=== PATIENT | male | born 1935 | race Caucasian/White ===

== ENCOUNTER 2018-04-14 11:31 | Emergency (ER) | payer MEDICARE, BC ==
[2018-04-14] MEDS ORDERED: Diph,Pert(Acell),Tet Vac 0.5 ML SYR IM ONE (12:14)
--- NOTE | 2018-04-14 12:16 | Emergency Department Record ---
History of Present Illness - General Chief Complaint: Laceration(s) Stated Complaint: RIGHT INDEX FINGER LAC Time Seen by Provider: 04/14/18 12:05 Source: Patient, RN notes reviewed Mode of Arrival: Ambulatory - History of Present Illness Initial Commments: got his right index finger caught under a lawnmower and also some right shoulder pain with FROM of shoulder. Onset/Timin -: Hour(s) Place: Home Context: Sharp object use Associated Symptoms: None Treatments Prior to Arrival: Bandage - Related Data Hx Tetanus Toxoid Vaccination: Yes Home Medications Medication Instructions Recorded Confirmed Last Taken Cetirizine HCl [All Day Allergy] 10 mg PO DAILY 04/14/18 04/14/18 Unknown Hydrochlorothiazide [Hctz] 12.5 mg PO DAILY 04/14/18 04/14/18 Unknown Lysine 500 mg PO DAILY 04/14/18 04/14/18 Unknown Meloxicam 7.5 mg PO DAILY 04/14/18 04/14/18 Unknown Methimazole [Tapazole] 5 mg PO DAILY 04/14/18 04/14/18 Unknown Simvastatin [Zocor] 10 mg PO DAILY 04/14/18 04/14/18 Unknown Terazosin HCl 10 mg PO DAILY 04/14/18 04/14/18 Unknown Tramadol HCl [Ultram] 50 mg PO Q8H 04/14/18 04/14/18 Unknown Previous Rx's Medication Instructions Recorded Cephalexin [Keflex] 500 mg PO QID #40 cap 04/14/18 Hydrocodone/Acetaminophen [[place] 1 each PO Q6HR #10 tablet 04/14/18 5-325 Tablet] Allergies Allergy/AdvReac Type Severity Reaction Status Date / Time No Known Drug Allergies Allergy Verified 04/14/18 11:41 Travel Screening - Travel/Exposure Within Last 30 Days Have you traveled within the last 30 days?: No Review of Systems Reviewed: No additional complaints except as noted below Constitutional: Reports: As per HPI. Denies: Chills, Fever, Malaise, Night sweats, Weakness, Weight change Eyes: Reports: As per HPI. Denies: Eye discharge, Eye pain, Photophobia, Vision change ENT: Reports: As per HPI. Denies: Congestion, Dental pain, Ear pain, Epistaxis , Hearing loss, Throat pain Respiratory: Reports: As per HPI. Denies: Cough, Dyspnea, Hemoptysis, Stridor, Wheezes Cardiovascular: Reports: As per HPI. Denies: Arrhythmia, Chest pain, Dyspnea on exertion, Edema, Murmurs, Orthopnea, Palpitations, Paroxysmal nocturnal dyspnea, Rheumatic Fever, Syncope Endocrine: Reports: As per HPI. Denies: Fatigue, Heat or cold intolerance, Polydipsia, Polyuria Gastrointestinal: Reports: As per HPI. Denies: Abdominal pain, Constipation, Diarrhea, Hematemesis, Hematochezia, Melena, Nausea, Vomiting Genitourinary: Reports: As per HPI. Denies: Dysuria, Frequency, Hematuria, Incontinence, Retention, Testicular pain, Testicular mass, Urgency Musculoskeletal: Reports: As per HPI, Other (near amputation of the finger pad ) . Denies: Arthralgia, Back pain, Gout, Joint swelling, Myalgia, Neck pain Skin: Reports: As per HPI. Denies: Bruising, Change in color, Change in hair/ nails, Lesions, Pruritus, Rash Neurological: Reports: As per HPI. Denies: Abnormal gait, Confusion, Headache, Numbness, Paresthesias, Seizure, Tingling, Tremors, Vertigo, Weakness Psychiatric: Reports: As per HPI. Denies: Anxiety, Auditory hallucinations, Depression, Homicidal thoughts, Suicidal thoughts, Visual hallucinations Hematological/Lymphatic: Reports: As per HPI. Denies: Anemia, Blood Clots, Easy bleeding, Easy bruising, Swollen glands Past Medical History - SOCIAL HISTORY Smoking Status: Former smoker Alcohol Use: None Drug Use: None - RESPIRATORY Hx Respiratory Disorders: Yes Hx of CPAP: Yes - CARDIOVASCULAR Hx Cardio Disorders: Yes Hx Hypertension: Yes - NEURO Hx Neuro Disorders: No - GI Hx GI Disorders: No - Hx Genitourinary Disorders: No - ENDOCRINE Hx Endocrine Disorders: No - MUSCULOSKELETAL Hx Musculoskeletal Disorders: Yes Hx Arthritis: Yes - PSYCH Hx Psych Problems: No - HEMATOLOGY/ONCOLOGY Hx Hematology/Oncology Disorders: No Family Medical History Any Significant Family History?: No Physical Exam - General General Appearance: Alert, Oriented x3, Cooperative, No acute distress - Head Head exam: Normal inspection - Eye Eye exam: Normal appearance, PERRL Pupils: Normal accommodation - ENT ENT exam: Normal exam, Mucous membranes moist, Normal external ear exam, Normal orophraynx, TM's normal bilaterally Ear exam: Normal external inspection. negative: External canal tenderness Nasal Exam: Normal inspection. negative: Discharge, Sinus tenderness Mouth exam: Normal external inspection, Tongue normal Teeth exam: Normal inspection. negative: Dental caries Throat exam: Normal inspection. negative: Tonsillar erythema, Tonsillar exudate - Neck Neck exam: Normal inspection, Full ROM. negative: Tenderness - Respiratory Respiratory exam: Normal lung sounds bilaterally. negative: Respiratory distress - Cardiovascular Cardiovascular Exam: Regular rate, Normal rhythm, Normal heart sounds - GI/Abdominal GI/Abdominal exam: Soft, Normal bowel sounds. negative: Tenderness - Rectal Rectal exam: Deferred - exam: Deferred - Extremities Extremities exam: Normal inspection, Full ROM, Normal capillary refill, Tenderness (volar pad near amputation right index finger) - Back Back exam: Reports: Normal inspection, Full ROM. Denies: Muscle spasm, Rash noted, Tenderness - Neurological Neurological exam: Alert, Normal gait, Oriented X3, Reflexes normal - Psychiatric Psychiatric exam: Normal affect, Normal mood - Skin Skin exam: Dry, Intact, Normal color, Warm Course Vital Signs 04/14/18 11:34 Temperature 98.5 F Pulse Rate 116 H Respiratory 20 Rate Blood Pressure 155/90 Pulse Ox 97 - Reevaluation(s) Reevaluation #1: discussed case with Dr. Santana and he wants the pad tacked on with few sutures 04/14/18 14:00 Reevaluation #2: family called in and wanted Dr. Kim and will try to call him. 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 Kim or Dr. White tomorrow and set up follow up four 4 to 5 days. elevate hand tylenol 325 mg every 6 hours for mild pain and if severe pain use norco 5 mg one every 6 hours Prescriptions: Hydrocodone/Acetaminophen [[place] 5-325 Tablet] 1 each PO Q6HR #10 tablet Cephalexin [Keflex] 500 mg PO QID #40 cap Forms: Patient Portal Access Time of Disposition: 14:27 Quality - Quality Measures Quality Measures: N/A - Blood Pressure Screening Does Patient Have Any of the Following: No Blood Pressure Classification: Hypertensive Reading Systolic Measurement: 155 Diastolic Measurement: 90 Screening for High Blood Pressure: < Pre-Hypertensive BP, F/U Documented > [ G8950] Pre-Hypertensive Follow-up Interventions: Referral to alternative/primary care provider.
[2018-04-14] MEDS ORDERED: CEFTRIAXONE 1 GRAM VIAL IM ONE (14:18)
--- NOTE | 2018-04-15 10:53 | RADIOLOGY REPORT ---
EXAM: RIGHT INDEX FINGER, THREE VIEWS HISTORY: FINGER CAUGHT IN [employer]. TECHNIQUE: Three views of the right index finger were obtained. FINDINGS/IMPRESSION: Cutaneous defect involving the second distal phalanx. This appears to expose the volar aspect of the distal second phalanx where there is osseous irregularity as well as along the radial aspect. Moderate soft tissue swelling elsewhere. JOB NUMBER: [id number] MTDD
== END 2018-04-14 15:05 | disposition home or self-care (01) ==
LOC: ER 11:31
DX: S68.110A Complete traumatic metacarpophalangeal amputation of right index finger, initial encounter (principal); M25.511 Pain in right shoulder; W28.XXXA Contact with powered lawn mower, initial encounter; Y93.H9 Activity, other involving exterior property and land maintenance, building and construction; Y92.007 Garden or yard of unspecified non-institutional (private) residence as the place of occurrence of the external cause; I10 Essential (primary) hypertension; Z87.891 Personal history of nicotine dependence
CPT/HCPCS: 12041; 73140; 90715; 96372; 99284

== ENCOUNTER 2018-10-07 08:26 | Day surgery (SDC) | payer MEDICARE, BC ==
[~2018-10-07 08:26] MED LIST: ACETAMINOPHEN 1,000 MG/100 ML BTL IV ONE
[2018-10-07] MEDS ORDERED: BUPIVACAINE 0.25% W/EPI MPF 30ML VIAL IVP ONE (08:27)
[2018-10-07] MEDS ORDERED: LIDOCAINE 2% MDV (20MG/ML) 20ML VIAL IV ONE (08:27)
[2018-10-07] MEDS ORDERED: FENTANYL PF 100MCG/2ML VIAL IV ONE (08:27)
[2018-10-07] MEDS ORDERED: PROPOFOL 10 MG/ML VIAL IV ONE (08:27)
--- NOTE | 2018-10-08 11:00 | Operative Note ---
DATE OF SURGERY: 10/07/2018 Surgeon: Vini Mendieta DO PREOPERATIVE DIAGNOSIS: Posterior neck mass. POSTOPERATIVE DIAGNOSIS: Posterior neck mass. OPERATION: Wide excision of posterior neck mass. Indication: The patient is an 83-year-old male who presented to the clinic with what appeared to be an infected sebaceous cyst in the posterior aspect of his neck. We did discuss excision. Risks, benefits, and alternatives were discussed. Risks include but are not limited to bleeding, infection, and recurrence. He understood this fully. Thereafter, consent was signed and questions answered. PROCEDURE: The patient was taken to the operating room and placed in a supine position. Local and IV sedation was given per the department of anesthesia. The patient was placed in the left lateral position. His neck was prepped and draped in the usual fashion. The area around the mass was anesthetized with a total of 10 mL of 0.25% Sensorcaine with epinephrine. A wide elliptical incision was made. This was carried down to the subcutaneous tissue with cautery. This was then passed off the field. This measured about 4 cm down to the subcu. The wound was then irrigated and closed with 3-0 nylon. He was taken to the recovery room in satisfactory condition. CC: DO HUGO Ballesteros
== END 2018-10-07 11:14 | disposition home or self-care (01) ==
LOC: SUR 08:26
PROVIDERS: ATTEND Surgery
DX: R22.1 Localized swelling, mass and lump, neck (principal); I10 Essential (primary) hypertension; E78.00 Pure hypercholesterolemia, unspecified
CPT/HCPCS: 11426; 00300; J3010

== ENCOUNTER 2018-10-22 14:10 | Emergency (ER) | payer MEDICARE, BC ==
--- NOTE | 2018-10-22 14:34 | Emergency Department Record ---
History of Present Illness - General Chief Complaint: Laceration(s) Stated Complaint: LAC NECK Time Seen by Provider: 10/22/18 14:22 Source: Patient Mode of Arrival: Ambulatory Limitations: No limitations - History of Present Illness Initial Commments: 83 yo male presents with opening of the posterior neck surgery sight. Dr Mendieta removed a sebaceous cyst on 10/07. He had the sutures removed by the surgery nurse yesterday. NO pain, pus or fever. He noted a little blood under the dressing and his saw that the wound was open. Onset/Timin -: Hour(s) Location: Neck Place: Home Context: Accidental Associated Symptoms: None Treatments Prior to Arrival: Bandage - Ethel Coma Scale Eye Response: (4) Open spontaneously Motor Response: (6) Obeys commands Verbal Response: (5) Oriented Ethel Total: 15 - Related Data Hx Tetanus Toxoid Vaccination: Yes Home Medications Medication Instructions Recorded Confirmed Last Taken Losartan Potassium [Cozaar] 50 mg PO DAILY 10/22/18 10/22/18 10/22/18 Previous Rx's Medication Instructions Recorded Cephalexin [Keflex] 500 mg PO TID #30 cap 10/22/18 Allergies Allergy/AdvReac Type Severity Reaction Status Date / Time No Known Drug Allergies Allergy Verified 10/22/18 14:13 Travel Screening - Travel/Exposure Within Last 30 Days Have you traveled within the last 30 days?: No - Travel/Exposure Within Last Year Have you traveled outside the [place] in the last year?: No - Additonal Travel Details Have you been exposed to anyone with a communicable illness?: No - Travel Symptoms Symptom Screening: None Review of Systems Constitutional: Denies: Chills, Fever, Malaise, Weakness Eyes: Denies: Eye discharge ENT: Denies: Congestion, Throat pain Respiratory: Denies: Cough, Dyspnea, Hemoptysis, Wheezes Cardiovascular: Denies: Chest pain Endocrine: Denies: Fatigue Gastrointestinal: Denies: Abdominal pain, Diarrhea, Nausea, Vomiting Genitourinary: Denies: Dysuria, Frequency, Hematuria Musculoskeletal: Denies: Arthralgia, Back pain, Joint swelling, Myalgia, Neck pain Skin: Reports: Other. Denies: Bruising, Change in color Neurological: Denies: Headache Psychiatric: Denies: Anxiety Hematological/Lymphatic: Denies: Easy bleeding, Easy bruising Past Medical History - SOCIAL HISTORY Smoking Status: Former smoker Alcohol Use: Occasional Drug Use: None - RESPIRATORY Hx Respiratory Disorders: Yes Hx Sleep Apnea: Yes Hx of CPAP: Yes - CARDIOVASCULAR Hx Cardio Disorders: Yes Hx Hypertension: Yes (meds good control) Comment:: except with back pain-pain causes alot of problems - NEURO Hx Neuro Disorders: Yes Hx Dizziness: Yes (sometimes gets dizzy when stand quick-"unsteady") - GI Hx GI Disorders: No - Hx Genitourinary Disorders: Yes Hx Bladder Problem: Yes (urgency) Hx Prostate Problems: Yes (laser TURP) - ENDOCRINE Hx Endocrine Disorders: No - MUSCULOSKELETAL Hx Musculoskeletal Disorders: Yes Hx Arthritis: Yes - PSYCH Hx Psych Problems: No - HEMATOLOGY/ONCOLOGY Hx Hematology/Oncology Disorders: Yes 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 negative: Normal inspection - Extremities Extremities exam: Normal inspection - Neurological Neurological exam: Alert, Oriented X3 - Psychiatric Psychiatric exam: Normal affect, Normal mood - Skin Type of lesion: Laceration Course Vital Signs 10/22/18 14:19 Temperature 97.7 F Pulse Rate 108 H Respiratory 18 Rate Blood Pressure 129/69 Pulse Ox 96 - Reevaluation(s) Reevaluation #1: The wound was examined. Dr Mendieta paged to discussed the case. 10/22/18 14:34 The case was discussed with Dr Mendieta. He recommended closure after thorough clean given it is clean to the base. Procedure: Laceration Repair 5cm Betadine Prep Lidocaine with Epi 5ml local Copious irrigation of the wound that was clean to the base Ethilon 2-0 suture used & sutures placed with good wound approximation Dressing applied. We discussed the follow up, home care and reasons to return 10/22/18 15:18 Disposition Disposition: Discharge Clinical Impression: Wound dehiscence Disposition: Home, Self-Care Condition: (1) Good Instructions: Laceration (ED) Additional Instructions: Call Dr Mendieta for close follow up of the healing of the surgery site Return or call Dr Mendieta if you have any redness, pain, pus, drainage, or fever Prescriptions: Cephalexin [Keflex] 500 mg PO TID #30 cap Forms: Patient Portal Access Time of Disposition: 15:22 Quality - Quality Measures Quality Measures: N/A - Blood Pressure Screening Does Patient Have Any of the Following: No Blood Pressure Classification: Pre-Hypertensive BP Reading Systolic Measurement: 129 Diastolic Measurement: 69 Screening for High Blood Pressure: < Pre-Hypertensive BP, F/U Documented > [ G8950] Pre-Hypertensive Follow-up Interventions: Referral to alternative/primary care provider.
[2018-10-22] MEDS ORDERED: CEPHALEXIN 500 MG CAPSULE PO STA (15:22)
== END 2018-10-22 15:33 | disposition home or self-care (01) ==
LOC: ER 14:10
DX: T81.31XA Disruption of external operation (surgical) wound, not elsewhere classified, initial encounter (principal); Y83.8 Other surgical procedures as the cause of abnormal reaction of the patient, or of later complication, without mention of misadventure at the time of the procedure; I10 Essential (primary) hypertension; Y92.009 Unspecified place in unspecified non-institutional (private) residence as the place of occurrence of the external cause; Z87.891 Personal history of nicotine dependence
CPT/HCPCS: 12002; 99283; 99284

== ENCOUNTER 2019-12-10 11:45 | Day surgery (SDC) | payer MEDICARE, BC ==
--- NOTE | 2019-12-10 07:51 | History and Physical - [place] ---
CHIEF COMPLAINT/HISTORY OF CHIEF COMPLAINT: This patient presents with pain which is low back, hip and leg. MRI diagnostics showed diffuse spondylosis. There are multiple levels of spinal stenosis L2-L3, L3-L4, and L4-L5. Pain patterns are aggravated with ambulation and activities, it abates with sitting and forward flexion. Treatment history has been conservatively based physical therapy, biomechanic treatments, pain clinic treatments with a minimum of ten years of treatment options unsuccessful. Due to the failure of therapy and the symptom pattern consistent with neurogenic intermittent claudication, he is here for interspinal spacer placement. PAST MEDICAL HISTORY: Hypertension and sleep apnea. PAST SURGICAL HISTORY: List to be provided. MEDICATIONS ON ADMISSION: List to be provided. No blood thinners. ALLERGIES: None listed. FAMILY/PSYCHOSOCIAL HISTORY: Social history - Social alcohol. Family history - Hypertension. SYSTEMS REVIEW: The patient is appropriate in no acute distress. The remainder of the systems review is positive for glasses, dentures, and tremor. PHYSICAL EXAMINATION: Height is 5'10", weight is 180. HEENT: Within normal limits. LUNGS: Clear. HEART: Rapid and regular. ABDOMEN: Nontender. MUSCULOSKELETAL: Examination of the musculoskeletal system shows pain and tenderness lumbar spine. Range of motion does produce pain to the low back. Ambulation produces pain. Sitting and forward flexing reduces and eliminates pain. There are no significant motor sensory abnormalities into his legs, although there is mild weakness. Ambulation - No assistive device utilized. NEUROLOGIC: Cranial nerves are intact. 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 PLAN: Due to the failure of therapy he is here for interspinal spacer placement at L3-L4 and L4-L5 on an outpatient basis. The potential risks, side effect and complications have been reviewed and discussed. He was put in contact with a clinical specialist from the director of enterprise architecture who also discussed risks, side effects and complications. The primary level is a L4-L5, we will attempt at L3-L4 to improve the overall effectiveness of the procedure. JOB NUMBER: [id number] [facility]
[~2019-12-10 11:45] MED LIST changes: -ACETAMINOPHEN 1,000 MG/100 ML BTL IV ONE; +ACETAMINOPHEN 1,000 MG/100 ML BTL IVPB ONE; +CEFAZOLIN 2 Gram 2 GM/50 ML BAG IVPB ONE; +FAMOTIDINE 20MG TABLET PO ONE; +MECLIZINE 25 MG TABLET PO ONE; +METOCLOPRAMIDE 10 MG TABLET PO ONE
[2019-12-10] MEDS ORDERED: FENTANYL PF 100MCG/2ML VIAL IV ONE (11:46)
[2019-12-10] MEDS ORDERED: PROPOFOL 10 MG/ML VIAL IV ONE (11:46)
[2019-12-10] MEDS ORDERED: LIDOCAINE 2% MDV (20MG/ML) 20ML VIAL IV ONE (11:46)
[2019-12-10] MEDS ORDERED: MIDAZOLAM HCL 2MG/2ML VIAL IV ONE (11:46)
[2019-12-10 12:04] LABS: BLEEDING TIME 3.5 MINUTES (1.5-7.0)
[2019-12-10 12:18] LABS: PARTIAL THROMBOPLASTIN TIME 25.5 SECONDS (24.5-39.1); PROTHROMBIN TIME (PATIENT) 10.6 SECONDS (9.5-12.1)
[2019-12-10] MEDS ORDERED: RINGERS SOLUTION,LACTATED 1,000 ML IV ONE (12:30)
[2019-12-10] MEDS ORDERED: BUPIVACAINE 0.5% (5MG/ML) PF 30ML VIAL SQ ONE (15:14)
[2019-12-10] MEDS ORDERED: LIDOCAINE 1% MPF 100MG/10ML STERILE-PAK AMPULE SQ ONE (15:14)
[2019-12-10] MEDS ORDERED: CEFAZOLIN 1G VIAL IR ONE (15:15)
--- NOTE | 2019-12-11 14:40 | Operative Note - [place] ---
DATE OF SURGERY: 12/10/2019 PREOPERATIVE DIAGNOSIS: LUMBAR SPINAL STENOSIS WITH NEUROGENIC INTERMITTENT CLAUDICATION, ICD-10 CODE M48.062. OPERATION: 1. FLUOROSCOPICALLY GUIDED PLACEMENT OF INTERSPINAL SPACER AT L3-L4. 2. FLUOROSCOPICALLY GUIDED PLACEMENT OF INTERSPINAL SPACER PLACEMENT AT L4-L5. SURGEON: Ankit Lindsey D.O. ANESTHESIA: Local sedation. ANESTHESIA PROVIDER: Julio Stevenson CRNA INDICATION: This patient presents with history of multiple level lumbar spinal stenosis. The symptom pattern is low back with leg aggravated with activities, subsides with sitting or forward bending. Treatment history has been extensive, 10-15 years in duration and unsuccessful. Surgical evaluation has suggested no surgery. Due to the failure of all therapies, he is here for interspinal spacer placement at L3-L4 and L4-L5. PROCEDURE: Intravenous line, vital sign monitoring, IV sedation by Anesthesia. The patient was positioned prone. Sterile prep, sterile technique. Under imaging the spinal interspace at L4-L5 was identified on AP imaging, skin infiltrated. Using AP and lateral imaging a dilator was placed between the spinous process of L4 and L5 staying posterior to the lamina. A second dilator was then inserted over the first using PA and lateral imaging engaged within the posterior aspect of the spinous processes. The dilator was removed and a debrider instrument was placed debriding posterior to the lamina between the spinous processes. A major gaging device was then inserted to measure the distance between the spinous process at L4-L5 was estimated at 10 mm. At that point a 10 mm interspinal spacer was placed, positioned, using AP and lateral images expanded distracting the spinous process at L4-L5 and L5-S1./ It was gently tapped into position posterior to the lamina. The instrumentation was removed. Moving to L3-L4 and maintaining sterility, the skin was infiltrated, a dilator was placed between the spinous processes of L3 and L4 staying posterior to the lamina on AP and lateral imaging. A second dilator was inserted, distracting the spinous processes of L3 and L4, the inner-dilator was removed and then a debriding device was placed to debride, and open the interspinous process posterior to the lamina. A gauging device was then inserted and measuring the distance between the spinous process of 12 mm a 12 mm interspinal spacer was then inserted and then under imaging a PA and lateral imaging opened and expanded to distract the spinous processes of L3 and L4. All of the instrumentation was removed. AP and lateral imaging showed appropriate position of the two spaces at L3-L4 and L4-L5 posterior to the lamina and fully engaged within the spinous processes. Antibiotic irrigation, a 2-0 Vicryl was used to close the fascia and a nylon intraoperative was used to close the skin. He was transported to the Recovery Room in stable condition. No side effects from the procedure or sedation. When fully awake and alert, he was prepared for discharge. DISCHARGE INSTRUCTIONS: 1. The site is to remain clean and dry. He may shower, but must keep the dressings dry. 2. Standard medications resumed including the antibiotic Levaquin 500 mg a day for fourteen days. A script for pain medication [place] has been provided for incisional pain. 3. Office to contact the patient in 12-24 hours to set up an appointment in 7- 10 days to evaluate thee sites and until then he is to keep his activities low. Total restriction period is six weeks. Until he comes in in 7-10 days should limit bend, lift, push and pull and keep his activities at a minimum. All other instructions were provided. Numbers to contact if problems given. He was then discharged. The procedure was atraumatic. He showed no unusual pain patterns and he will have full functionality. JOB NUMBER: [id number] [facility]
--- NOTE | 2019-12-11 18:27 | RADIOLOGY REPORT ---
EXAMINATION: Thoracolumbar Spine Single View EXAM DATE: 12/10/2019 5:31 PM TECHNIQUE: AP INDICATION: S/P VERTIFLEX IMPLANT 01/27 AND 02/28 COMPARISON: 11/22/2029 ENCOUNTER: Initial FINDINGS: Normal vertebral body heights. Diffuse spondylitic change with interspace narrowing and lateral spurr ing. Anterior fusion L4-L5 L5-S1. No paraspinal masses. IMPRESSION: Diffuse spondylitic change Dictated by: Dylon Patton MD on 12/11/2019 6:24 PM. .
== END 2019-12-10 17:10 | disposition home or self-care (01) ==
LOC: SUR 11:45
PROVIDERS: ATTEND Pain Medicine Interventional Pain Medicine
DX: M48.062 Spinal stenosis, lumbar region with neurogenic claudication (principal); I10 Essential (primary) hypertension; E78.00 Pure hypercholesterolemia, unspecified; J44.9 Chronic obstructive pulmonary disease, unspecified; G47.33 Obstructive sleep apnea (adult) (pediatric)
CPT/HCPCS: 22869; 22870; 00630; 85730; 85610; 85002; 72020; C1821; J3010; J0690; J3490; J7120